=== PATIENT | female | born 1935 | race Two or more races ===

== ENCOUNTER 2019-10-13 10:14 | Inpatient (IN) | payer OTHER ==
[~2019-10-13] VITALS: Ht 160 cm; Wt 51.7 kg
[2019-11-05] MEDS ORDERED: POLY119PG PO (08:25)
[2019-11-05] MEDS ORDERED: INTESTINEX680 M1 PO (08:25)
[2019-11-05] MEDS ORDERED: CIPRO500 MG PO (08:26)
[2019-11-05] MEDS ORDERED: ULTRACET PO (08:26)
== END 2019-11-05 09:42 | disposition home or self-care (01) | DRG 333 ==
LOC: O/R 11-03 05:31 → SURG 11-03 05:31
PROVIDERS: ADMIT Surgery
PROC: 0DBP7ZZ Excision of Rectum, Via Natural or Artificial Opening (ICD-10-PCS; 2019-11-03)
PROC: 0DBP0ZZ Excision of Rectum, Open Approach (ICD-10-PCS; principal; 2019-11-03 07:00)
DX: K62.3 Rectal prolapse (principal); K62.6 Ulcer of anus and rectum; R15.9 Full incontinence of feces

== ENCOUNTER → 2019-10-13 | Emergency (ER) | payer OTHER ==
[~2019-10-13] VITALS: Ht 160 cm; Wt 52.6 kg
== END | disposition home or self-care (01) ==
LOC: ER 06:31
DX: K62.3 Rectal prolapse (principal)